=== PATIENT | male | born 1975 | race Caucasian/White ===

== ENCOUNTER 2025-03-14 20:34 | Emergency (ER) | payer OTHER, SELFPAY ==
--- NOTE | ~2025-03-14 | CT_ITS ---
EXAMINATION: CT abdomen pelvis wo con DATE: 03/14/2025 21:00 INDICATION: L flank pain TECHNIQUE: Computed tomography (CT) of the abdomen and pelvis was performed without intravenous contr ast. Automated exposure control and iterative reconstruction technique were employed. The dose-length product was 723.91 mGy-cm. COMPARISON: None. FINDINGS: Lower thorax: Coronary artery calcification. Liver: Normal. Biliary/Gallbladder: Gallbladder is normal. No bile duct dilation. Pancreas: No mass or duct dilation. Spleen: Normal. Adrenals:No mass. Kidneys: Mild bilateral renal cortical scarring and atrophy. No suspicious mass. Mild left hydronephr osis. GI tract: Small hiatal hernia. No small or large bowel dilation. Normal appendix. Diverticulosis with out diverticulitis. Mesentery/Peritoneum: No ascites, mass, or free air. Retroperitoneum: No mass. Atherosclerotic calcifications of intra-abdominal arterial vessels. Pelvis: Mostly empty urinary bladder. 4 mm calcification in the left UVJ. Prostatomegaly. Soft Tissues: Small, acute appearing fat-containing umbilical and right inguinal hernias. Bones: No acute osseous finding. IMPRESSION: 4 mm left UVJ stone causing mild obstructive uropathy. Reviewed, dictated and finalized at location K.
--- OUTSIDE RECORDS SUMMARY | 2025-03-14 20:36 | XMS_ITS | Patient Health Record ---
Author Organization [facility] [address] Address [address] [facility] [address] [place] [address] Care Team Providers Care Press Writer Name Role Phone Katherin Gonzalez Unavailable [phone] Reason For Referral No Information Plan Of Treatment No Information
--- OUTSIDE RECORDS SUMMARY | 2025-03-14 20:36 | XMS_ITS | Clinical Summary ---
Author Organization [facility] Address [address] [place] [address] Phone Care Team Providers Care Neon Sign Installer Name Role Phone Provider, None Primary Care Provider Unavailabl e Allergies Active Allergy Reactions Criticality Noted Date Comments Penicillin G Unknown 07/23/2019 Medications BUPROPION HCL PO Take 150 mg by mouth daily. Active methylphenidate (RITALIN) 20 MG Tablet Take 20 mg by mouth daily. Active Social History Tobacco Use Types Packs/Day Years Used Date Smoking Tobacco: Every Day Smokeless Tobacco: Never Alcohol Use Standard Drinks/Week Comments Yes 0 (1 standard drink = 0.6 oz pur e alcohol) occasionally Sex and Gender Information Value Date Recorded Sex Assigned at Not on file Legal Sex Male 12:08 PM DOPING SUPERVISOR Gender Identity Not on file Sexual Orientation Not on file Last Filed Vital Signs Vital Sign Reading Time Taken Comments Blood Pressure 117/78 07/23/2019 4:00 PM DOPING SUPERVISOR Pulse 93 07/23/2019 12:33 PM DOPING SUPERVISOR Temperature 36.5 C (97.7 F) 07/23/2019 12:33 PM DOPING SUPERVISOR Respiratory Rate 18 07/23/2019 12:33 PM DOPING SUPERVISOR Oxygen Saturation 96% 07/23/2019 4:00 PM DOPING SUPERVISOR Inhaled Oxygen Concentration - - Weight 99.8 kg (220 lb) 07/23/2019 12:33 PM DOPING SUPERVISOR Height 175.3 cm (5' 9) 07/23/2019 12:33 PM DOPING SUPERVISOR Body Mass Index 32.49 07/23/2019 12:33 PM DOPING SUPERVISOR Plan of Treatment Health Maintenance Due Date Last Done Comments Hepatitis C Virus (HCV) Screening 1976 TdaP Immunization 1976 Hepatitis B Immunization (1 of 3 - 19+ 3-dose series) 12/21/1995 Cologuard 2021 Colonoscopy 2021 Colorectal Cancer Screening 2021 Immunochemical Fecal Occult Blood 2021 SARS-COV-2 Immunization ( - 2023- season) 2024 Influenza Immunization (#1) 2025 Respiratory Syncytial Virus (RSV) Immunization (Adult) (1 - 1-dose 75+ series) 12/21/2051 Human Papillomavirus (HPV) Immunization Aged Out No longer eligible b ased on patient's age to complete this topic Meningococcal Immunization (ACWY) Aged Out No longer eligible based on patient's age to complete this topic Pneumococcal Immunization Combined Aged Out No longer eligible based on patient's age to complete this topic Rotavirus Immunization Aged Out No lo nger eligible based on patient's age to complete this topic Care Teams Neon Sign Installer Relationship Specialty Start Date End Date Provider, None [place] PCP - General 07/23/19
--- OUTSIDE RECORDS SUMMARY | 2025-03-14 20:36 | XMS_ITS | Patient Health Record ---
Author Organization [facility] Address [address] [place] [address] [address] [place] [address] Care Team Providers Care Customer Sales Consultant Name Role Phone NIKKY Carmona ELIJAH Unavailable [phone] Reason For Referral No Information Medications Medication SIG (Take, Route, Frequency, Duration) Notes Start Date End Date Status buPROPion HCl ER (XL) 150 MG buPROPion HCl ER (XL) 150MG, 1 (one) Tablet daily # 30, 01/24/2020, No Refill. Active Oral daily; Duration: 0 01/24/2020 Active Methylphenidate HCl 20 MG Methylphenidat e HCl 20MG, 1 (one) Tablet three times daily # 90, 09/18/2019, No Refill. Active Oral three times daily; Duration: 0 09/18/2019 Active Immunizations Vaccine Route Administration Date Status Comme nts Tdap Unknown 12/12/2017 Partially Administered ,I mmunizationName,' : Tdap (7 years and up) (19453) ,Status,' : Preliminary Problems Problem Type SNOMED Code ICD Code Onset Dates Problem Status W/U Status Risk Notes Problem Attention defici t hyperactivity disorder, inattentive type (F90.0) Active confirmed Problem Mixed anxiety and depressive disorder (681448321) Anxiety and depression (F41.9, F32.9) Active confirmed Plan Of Treatment No Information Insurance Providers Payer Name Payer Address Payer Phone Subscriber Number Group Number Insured Name Patient Relationship to Insured Coverage Start Date Coverage End Date [facility] [address] [place] [id number] Skin TherapistSukhdeep Self - patient is the insured 9 Medical (General) History Surgical History Surgery Date(Month/Year) Problem Title : Knee Surgery , Problem Comment : 1991, Problem Status : Active, Attribute Title : Left,
[2025-03-14 20:37] VITALS: BP 145/91; PULSE 82; RESP 16; TEMP 36.5; O2SAT 100
[2025-03-14 21:19] LABS: Add Urine Microscopic? YES; Appearance Urine Clear (Clear); Glucose Urine UA Negative (Negative); Leukocyte Esterase Ur Trace LEU/UL (Negative); Nitrate Urine Negative (Negative); Non Pathogenic Casts 0-2; Specific Grav Ur 1.027 (1.001-1.035)
[2025-03-14] MEDS: TAMSULOSIN HCL 0.4 MG CAPSULE PO (21:38)
[2025-03-14] MEDS: KETOROLAC 30 MG/ML VIAL (*BKC) 15 MG IM (21:38)
--- OUTSIDE RECORDS SUMMARY | 2025-03-14 21:41 | XMS_ITS | Clinical Summary ---
Author Organization [facility] Address [address] [place] [address] Phone Care Team Providers Care Psychiatric Therapist Name Role Phone Provider, None Primary Care [...] on file Legal Sex Male 12:08 PM GUN STOCK CHECKER Gender Identity Not on file Sexual Orientation Not on file Last Filed Vital Signs Vital Sign Reading Time Taken Comments Blood Pressure 117/78 07/23/2019 4:00 PM GUN STOCK CHECKER Pulse 93 07/23/2019 12:33 PM GUN STOCK CHECKER Temperature 36.5 C (97.7 F) 07/23/2019 12:33 PM GUN STOCK CHECKER Respiratory Rate 18 07/23/2019 12:33 PM GUN STOCK CHECKER Oxygen Saturation 96% 07/23/2019 4:00 PM GUN STOCK CHECKER Inhaled Oxygen Concentration - - Weight 99.8 kg (220 lb) 07/23/2019 12:33 PM GUN STOCK CHECKER Height 175.3 cm (5' 9) 07/23/2019 12:33 PM GUN STOCK CHECKER Body Mass Index 32.49 07/23/2019 12:33 PM GUN STOCK CHECKER Plan of Treatment Health Maintenance Due Date [...] age to complete this topic Care Teams Psychiatric Therapist Relationship Specialty Start Date End Date Provider, None [place] PCP - General 07/23/19
--- OUTSIDE RECORDS SUMMARY | 2025-03-14 21:41 | XMS_ITS | Clinical Summary ---
Author Organization [facility] [address] Address [address] [place] [address] Care Team Providers Care News Agent Name Role Phone Lul Thomas MD Primary Care Provider [phone] Allergies Active Allergy Reactions Criticality Noted Date Comments Penicillin G Unknown 07/23/2019 Medications No known medications Active Problems Problem Noted Date Diagnosed Date Annual physical exam 08/05/2021 Immunizations Immunization Administration Dates Next Due Hep A, Adult 04/06/2010 Tdap 01/05/2018 Social History Tobacco Use Types Packs/Day Years Used Date Smoking Tobacco: Never Smokeless Tobacco: Never PHQ-2 Answer Date Recorded PHQ-2 Total Score (If total score is 3 or more points, staff should administer the PHQ-9) 0 08/05/2021 Sex and Gender Information Value Date Recorded Sex Assigned at Not on file Legal Sex Male 8:26 PM INBOUND SALES ADVISOR Gender Identity Not on file Sexual Orientation Not on file Obstetrics History Last Filed Vital Signs Vital Sign Reading Time Taken Comments Blood Pressure 120/76 08/05/2021 8:36 AM INBOUND SALES ADVISOR Pulse 104 08/05/2021 8:36 AM INBOUND SALES ADVISOR Temperature 36.9 C (98.4 F) 08/05/2021 8:36 AM INBOUND SALES ADVISOR Respiratory Rate 16 07/28/2021 8:47 AM INBOUND SALES ADVISOR Oxygen Saturation 98% 08/05/2021 8:36 AM INBOUND SALES ADVISOR Inhaled Oxygen Concentration - - Weight 101.2 kg (223 lb 1.6 oz) 08/05/2021 8:36 AM INBOUND SALES ADVISOR Height 172.7 cm (5' 8) 08/05/2021 8:36 AM INBOUND SALES ADVISOR Body Mass Index 33.92 08/05/2021 8:36 AM INBOUND SALES ADVISOR Plan of Treatment Not on file Insurance Care Teams News Agent Relationship Specialty Start Date End Date Lul Thomas MD PCP - General Family Medicine 08/05/21
--- OUTSIDE RECORDS SUMMARY | 2025-03-14 21:41 | XMS_ITS | Referral Summary ---
Author Organization [facility] [address] Address [address] [place] [address] Care Team Providers Care Felling Machine Operator Name Role Phone Lul Thomas MD Primary Care Provider [phone] Allergies Active Allergy Reactions Criticality Noted Date [...] on file Legal Sex Male 8:26 PM PADDED BOX SEWER Gender Identity Not on file Sexual Orientation Not on file Last Filed Vital Signs Vital Sign Reading Time Taken Comments Blood Pressure 120/76 08/05/2021 8:36 AM PADDED BOX SEWER Pulse 104 08/05/2021 8:36 AM PADDED BOX SEWER Temperature 36.9 C (98.4 F) 08/05/2021 8:36 AM PADDED BOX SEWER Respiratory Rate 16 07/28/2021 8:47 AM PADDED BOX SEWER Oxygen Saturation 98% 08/05/2021 8:36 AM PADDED BOX SEWER Inhaled Oxygen Concentration - - Weight 101.2 kg (223 lb 1.6 oz) 08/05/2021 8:36 AM PADDED BOX SEWER Height 172.7 cm (5' 8) 08/05/2021 8:36 AM PADDED BOX SEWER Body Mass Index 33.92 08/05/2021 8:36 AM PADDED BOX SEWER Plan of Treatment Not on file Insurance [facility] HMO/PPO Address: [facility] [id number] [place] [address] Care Teams Felling Machine Operator Relationship Specialty Start Date End Date Lul Thomas MD PCP - General Family Medicine 08/05/21
--- NOTE | 2025-03-15 01:51 | ED_ITS ---
HPI - Male Genitourinary General Chief complaint: Urogenital-Male Stated complaint: blood in urine Time Seen by Provider: 03/14/25 20:47 History of Present Illness HPI Narrative: Patient presents here after having some pain to his left flank, on and off since 8 this morning, seems to be moving down to his groin, when he started noticing blood in his urine he came to the ER. Associated with some nausea. Related Data Allergies Allergy/AdvReac Type Severity Reaction Status Date / Time Penicillins Allergy Unknown unknown Verified 03/14/25 20:36 Review of Systems Review of Systems: All systems reviewed & are unremarkable except as noted in HPI and below Exam Narrative: EXAMINATION OF ORGAN SYSTEMS/BODY AREAS: Constitutional: Vital signs per nursing GENERAL:[No acute distress, non-toxic appearing.] HEAD: Normal with no signs of head trauma. EYES: EOMI, conjunctiva normal ENT: Hearing grossly intact LUNGS: Nonlabored breathing. HEART: [Regular rate and rhythm] ABD: [Soft], [nontender to palpation] EXT: Normal range of motion SKIN: [No rashes or lesions.] NEURO: [Alert and oriented x 3. No gross focal sensory or strength deficits.] PSYCH: Normal affect Course Vital Signs Vital signs: Vital Signs Temperature 97.7 F 03/14/25 20:37 Pulse Rate 82 03/14/25 20:37 Respiratory Rate 16 03/14/25 20:37 Blood Pressure 145/91 H 03/14/25 20:37 Pulse Oximetry 100 03/14/25 20:37 Oxygen Delivery Room Air 03/14/25 20:37 Temperature 97.7 F 03/14/25 20:37 Pulse Rate 82 03/14/25 20:37 Respiratory Rate 16 03/14/25 20:37 Blood Pressure 145/91 H 03/14/25 20:37 Pulse Oximetry 100 03/14/25 20:37 Oxygen Delivery Room Air 03/14/25 20:37 MDM - Male Genitourinary MDM Narrative Medical decision making narrative: ED COURSE AND MEDICAL DECISION MAKINM presenting to the emergency department for acute flank pain, symptoms are concerning for likely renal colic versus pyelonephritis. Urinalysis is ordered. [Toradol 15mg] are ordered. CT scan of the abdomen/pelvis is ordered. Labs are remarkable for: Urinalysis with large amount of RBCs but no signs of a UTI. CT scan of the abdomen/pelvis my independent interpretation shows 3 mm UVJ stone On reevaluation, the patient very well-appearing, denies any pain currently. Flomax ordered. Patient is strongly advised to return to the emergency department for any increasing pain not improving with medications, persistent nausea vomiting, fevers or chills or for any other concerns. Patient is comfortable with this plan and was discharged in fair condition. Lab Data Labs: Lab Results 03/14/25 Range/Units 20:54 Urine Color Yellow (Yellow) Urine Appearance Clear (Clear) Urine pH 5.5 (5.0-9.0) Ur Specific [place] 1.027 (1.001-1.035) Urine Protein 1+ H (Negative) mg/dL Urine Glucose (UA) Negative (Negative) mg/dL Urine Ketones Trace H (Negative) mg/dL Ur Blood (Man) 3+ H (Negative) Urine Nitrate Negative (Negative) Urine Bilirubin Negative (Negative) Urine Urobilinogen 1.0 (<2.0) mg/dL Leukocyte Esterase Rfl Trace H (Negative) CARRIE/UL Urine RBC >100 H (0-2) /hpf Urine WBC 0-5 (0-3) /hpf Ur Squamous Epith Cells None seen (Few) /hpf Urine Bacteria None seen /hpf Urine Casts 0-2 Discharge Plan Discharge Clinical Impression: Kidney stone Patient Disposition: Home Condition: Stable Instructions: Kidney Stones (ED) Additional Instructions: Please take the medications as prescribed and follow up with the urologist; you can always return to the ER. Patient Language: Latvian Prescriptions: New ondansetron 4 mg tablet,disintegrating 4 mg PO Q8H PRN (Reason: nausea and vomiting) Qty: 10 0RF ketorolac 10 mg tablet 10 mg PO Q6H PRN (Reason: pain) Qty: 14 0RF Rx Instructions: maximum total duration of 5 days from all oral, intranasal, or parenteral formulations tamsulosin [Flomax] 0.4 mg capsule 0.4 mg PO DAILY Qty: 14 0RF Follow-up/Referrals: Jose Gale MD [Physician] - 2 Days Chinedu,Trace Salas MD [Primary Care Provider] -
== END 2025-03-14 23:01 | disposition home or self-care (01) ==
LOC: ANHED 21:40
PROVIDERS: Student in an Organized Health Care Education/Training Program; Emergency Provider Emergency Medicine; PCP Family Medicine
DX: N13.9 Obstructive and reflux uropathy, unspecified (principal); N20.1 Calculus of ureter
CPT/HCPCS: 74176; 81001; 96372; 99284; A9270; J1885